=== PATIENT | male | born 1950 | race Two or more races ===

== ENCOUNTER 2024-10-20 09:42 | Outpatient (CLI) | payer OTHER ==
[~2024-10-20 09:42] MED LIST: LIPITOR20 MG PO; NORVASC5 MG PO; TAMS0.4C PO; TRELEGY ELLIPT1 EACH IH
== END 2024-10-20 09:44 | disposition home or self-care (01) ==
LOC: TOM 09:42
PROVIDERS: ATTEND Surgery
DX: C20 Malignant neoplasm of rectum (principal); K62.5 Hemorrhage of anus and rectum; R59.0 Localized enlarged lymph nodes
CPT/HCPCS: 71260; Q9965

== ENCOUNTER 2024-10-22 10:43 | Day surgery (SDC) | payer OTHER ==
[2024-10-19 15:12] LABS: PH,URINE 5.5 (5.0-8.0); URINE APPEARANCE Clear; URINE BILIRRUBIN Negative (NEGATIVE); URINE BLOOD Trace; URINE COLOR Dark Yellow; URINE GLUCOSE Negative (NEGATIVE); URINE KETONE Negative (NEGATIVE); URINE LEUKOCYTE Negative; URINE NITRATE Negative; URINE UROBILINOGEN 0.2 E.U./dl
[2024-10-19 15:15] LABS: URINE EPITHELIAL CELLS 2.3 uL (0.0-38.8); URINE RBC 35.4 uL (0.0-20.8); URINE WBC 8.8 uL (0.0-23.2)
[2024-10-19 15:28] VITALS: BP 135/82
[2024-10-19 15:35] LABS: URINE CAST 0.44 uL (0.0-1.40); URINE PROTEIN 100 (NEGATIVE)
[~2024-10-22] VITALS: Ht 167.6 cm; Wt 78.9 kg
[~2024-10-22 10:43] MED LIST changes: +VANCOMYCIN HCL 1,000 MG VIAL IV SCH
[2024-10-22] MEDS ORDERED: LIDOCAINE HCL 1% 20 ML VIAL IJ ONE (14:02)
[2024-10-22] MEDS ORDERED: VANCOMYCIN HCL 1,000 MG VIAL ONE (14:03)
[2024-10-22] MEDS ORDERED: HEPARIN SODIUM,PORCINE/PF 100 UNIT/ML SYRINGE IV ONE (14:04)
[2024-10-22] MEDS ORDERED: TRAM1TAB98 PO (14:10)
== END 2024-10-22 17:20 | disposition home or self-care (01) ==
LOC: CIR.AMB 10:43
PROVIDERS: ATTEND Surgery
DX: C20 Malignant neoplasm of rectum (principal); K62.5 Hemorrhage of anus and rectum; Z88.0 Allergy status to penicillin; I10 Essential (primary) hypertension; J44.9 Chronic obstructive pulmonary disease, unspecified; J43.9 Emphysema, unspecified
CPT/HCPCS: 36561; C1751